=== PATIENT | female | born 1965 | race Caucasian/White ===

== ENCOUNTER 2022-07-01 06:44 | Observation (INO) ==
[~2022-07-01 06:44] MED LIST: Buffered Lidocaine 1% SYRIN 1 ml INTRADERM ONE; HYDROcodone/ACETAMIN 5/325 mg TAB PO PRN; Lactated Ringers 1000 ml BAG 1,000 ML IV SCH; Metoclopramide 5 MG/ML VIAL (10 mg) IV PRN; Naloxone 0.4 mg VIAL 0.4 mg/ml 1 ml VIAL IV PRN; Ondansetron 4 mg VIAL 2 MG/ML 2 ml VIAL IV PRN; fentaNYL 100 mcg/2 ml 50 MCG/ML VIAL IV PRN
[2022-07-01] MEDS ORDERED: ceFAZolin 2 GM in NS PREMIX 2 GM/100 ML BAG IVPB ONE (07:19)
[2022-07-01] MEDS ORDERED: Desflurane 240 ML INH ONE (07:30)
[2022-07-01] MEDS ORDERED: fentaNYL 100 mcg/2 ml 50 MCG/ML VIAL ONE ×2 (07:30→07:33)
[2022-07-01] MEDS ORDERED: ROPIVACAINE 5 MG/ML 30 ML BTL (0.5%) ONE ×2 (07:30→07:43)
[2022-07-01] MEDS ORDERED: Dexamethasone IV 4 MG/ML VIAL 1 ml VIAL ONE ×2 (07:30→09:23)
[2022-07-01] MEDS ORDERED: Midazolam 2 mg/2 ml VIAL 1 mg/ml 2 ml VIAL (2 mg) ONE ×2 (07:30→07:34)
[2022-07-01] MEDS ORDERED: Propofol 10 MG/ML 20 ML BTL ONE ×3 (07:33→09:52)
[2022-07-01] MEDS ORDERED: Lidocaine 2% PF 5 ML VIAL ONE (07:33)
[2022-07-01] MEDS ORDERED: Ondansetron 4 mg VIAL 2 MG/ML 2 ml VIAL ONE (09:23)
[2022-07-01] MEDS ORDERED: Propofol 0 MG/0 ML BTL ONE (09:52)
[2022-07-01] MEDS ORDERED: Lactulose 30 ml UDC PO PRN (10:27)
[2022-07-01] MEDS ORDERED: Magnesium Hydroxide LIQ 30 ML UDC PO PRN (10:27)
[2022-07-01] MEDS ORDERED: Ondansetron 4 mg VIAL 2 MG/ML 2 ml VIAL IV PRN (10:27)
[2022-07-01] MEDS ORDERED: Ondansetron ODT 4 mg TAB 4 MG TAB PO PRN (10:27)
[2022-07-01] MEDS ORDERED: Morphine 2 MG/ML SYRINGE IV PRN (10:27)
[2022-07-01] MEDS ORDERED: HYDROcodone/ACETAMIN 5/325 mg TAB ONE (12:19)
[2022-07-01] MEDS: Lactated Ringers 1000 ml BAG 1,000 ML IV SCH ×2 (12:57→23:46)
[2022-07-01] MEDS: ceFAZolin 1 GM ADVAN 1 GM in NS 0.9% 50 ML 50 ML IVPB SCH (18:30)
[2022-07-01] MEDS: Magnesium Hydroxide LIQ 30 ML UDC PO SCH (20:44)
[2022-07-02] MEDS: ceFAZolin 1 GM ADVAN 1 GM in NS 0.9% 50 ML 50 ML IVPB SCH ×2 (01:49→10:07)
[2022-07-02 06:33] LABS: Hematocrit 34 % (35-47); Hemoglobin 11.7 g/dL (12.0-16.0); Mean Platelet Volume 7.7 fL (7.4-10.4); Platelet Count 269 10^3/uL (150-450)
[2022-07-02 06:53] LABS: Calcium 8.7 mg/dL (8.6-10.3); Potassium 4.2 mmol/L (3.5-5.0); eGFR CKD-EPI 66.9 (>60)
[2022-07-02] MEDS: Magnesium Hydroxide LIQ 30 ML UDC PO SCH (08:34)
[2022-07-02] MEDS ORDERED: ESTRADIOL 0.5 MG PO SCH (09:00)
[2022-07-02] MEDS ORDERED: Vitamin THERAPEUTIC TAB PO SCH (09:00)
[2022-07-02] MEDS ORDERED: Influenza vaccine *QUAD* *2022-23* 0.5 ML SYRINGE IM ONE (09:00)
== END 2022-07-02 12:30 | disposition home or self-care (01) ==
LOC: SSU 06:44 → OR 06:44
PROVIDERS: ADMIT Orthopaedic Surgery Adult Reconstructive Orthopaedic Surgery; ATTEND Orthopaedic Surgery Adult Reconstructive Orthopaedic Surgery